=== PATIENT | female | born 1970 | race Asian ===

== ENCOUNTER 2024-08-12 04:15 | Emergency (ER) | payer MEDICAID, OTHER ==
[~2024-08-12] VITALS: Ht 157.5 cm; Wt 68.2 kg
[2024-08-12 05:32] LABS: ANION GAP 9 mmol/L (8-16); CALCIUM, TOTAL 8.9 mg/dL (8.8-10.5); CARBON DIOXIDE 28 mmol/L (22-29); CHLORIDE 95 mmol/L (98-107); CREATININE 0.78 mg/dL (0.60-1.30); GLOMERULAR FILTR. RATE CALC > 60 mL/min (>60); GLUCOSE,RANDOM 386 mg/dL (70-110); SODIUM SERUM 132 mmol/L (136-145); UREA NITROGEN, BLOOD 16 mg/dL (7-18)
[2024-08-12 05:34] LABS: BASOPHILS % (AUTO) 0.1 % (0.0-2.0); EOSINOPHILS % (AUTO) 0.2 % (1.0-6.0); HEMATOCRIT 49.6 % (36-46); HEMOGLOBIN 16.4 g/dL (12.0-16.0); LYMPHOCYTES # (AUTO) 0.5 K/uL (1.0-4.8); MEAN CORPUSCULAR HEMOGLOBIN 30.2 pg (26.0-34.0); MEAN CORPUSCULAR VOLUME 92 fL (80-100); MONOCYTES # (AUTO) 0.5 K/uL (0.1-1.0); MONOCYTES % (AUTO) 2.8 % (2.0-9.0); NEUTROPHILS # (AUTO) 16.4 K/uL (1.8-7.7); PLATELET COUNT (AUTO) 380 K/uL (150-450); RED BLOOD CELL COUNT(AUTO) 5.41 MIL/uL (4.00-5.20); RED CELL DISTRIBUTION WIDTH 12.7 % (11.5-14.5); WHITE BLOOD COUNT (AUTO) 17.4 K/uL (4.5-11.0)
[2024-08-12 05:35] LABS: NEUTROPHILS % (AUTO) 93.9 % (40.0-70.0)
[2024-08-12 05:38] LABS: BILIRUBIN,DIRECT 0.1 mg/dL (0.00-0.20); BILIRUBIN,TOTAL 0.4 mg/dL (0.1-1.0); TOTAL PROTEIN, SERUM 8.8 g/dL (6.4-8.2)
[2024-08-12 05:42] LABS: LIPASE 43 U/L (16-77); TROPONIN I-HIGH SENSITIVITY 15 ng/L (<51)
[2024-08-12] MEDS: ONDANSETRON 4 MG TABLET PO ONE (06:03)
[2024-08-12] MEDS: SODIUM CHLORIDE 0.9% 1,000 ML IV ONE ×2 (06:38→08:21)
[2024-08-12] MEDS: ONDANSETRON HCL 4 MG/2 ML VIAL IVP ONE (06:41)
[2024-08-12] MEDS: PB/HYOSCY/ATR/SCOP/LIDO/MAALOX 55 ML BOTTLE PO ONE (06:41)
[2024-08-12] MEDS: MORPHINE SULFATE 4 MG/ML SYRINGE IVP ONE (06:42)
[2024-08-12 07:56] LABS: APPEARANCE,URINE CLEAR (CLEAR); BILIRUBIN,URINE NEGATIVE (NEGATIVE); COLOR,URINE LIGHT YELLOW (YELLOW); GLUCOSE, URINE (UA) >=1000 mg/dL (NEGATIVE); KETONES,URINE =>150 mg/dL (NEGATIVE); LEUKOCYTE ESTERASE ,URINE TRACE (NEGATIVE); NITRATE,URINE NEGATIVE (NEGATIVE); OCCULT BLOOD,URINE TRACE (NEGATIVE); PROTEIN,URINE TRACE mg/dL (NEGATIVE); SPECIFIC GRAVITIY, URINE 1.032 (1.003-1.030); UROBILINOGEN,URINE <=1.0 mg/dL (<=1.0)
[2024-08-12 08:01] LABS: GLUCOMETER DEV NAME(LOC) ER.7; GLUCOSE,POINT OF CARE 343 MG/DL (70-110)
[2024-08-12 08:24] LABS: BACTERIA,URINE None Seen /HPF (None Seen); RBC,URINE 0-2 /HPF (0-2); WBC,URINE 0-2 /HPF (0-5)
[2024-08-12] MEDS: INSULIN REGULAR, HUMAN 100 UNITS/ML IVP ONE (08:24)
[2024-08-12 09:56] LABS: GLUCOMETER DEV NAME(LOC) ER.7; GLUCOSE,POINT OF CARE 253 MG/DL (70-110)
[2024-08-12 10:31] VITALS: TEMP 98.2
[2024-08-12] MEDS ORDERED: ONDA-104 PO (10:32)
[2024-08-12] MEDS ORDERED: METF-1211 PO (10:32)
[2024-08-12 11:13] VITALS: BP 141/66; PULSE 77; RESP 18; O2SAT 99
== END 2024-08-12 11:15 | disposition home or self-care (01) ==
LOC: EMS 04:15
DX: R10.13 Epigastric pain (principal); R19.7 Diarrhea, unspecified; E11.9 Type 2 diabetes mellitus without complications
CPT/HCPCS: 99285; 96374; 76700; 96361; 96375; 80048; 80076; 81001; 82962 ×2; 83690; 84484; 85025; 36415; 93005; J1815; J2270; J2405; Q0162; J7030

== ENCOUNTER 2025-04-20 13:01 | Emergency (ER) | payer OTHER, MEDICAID ==
[~2025-04-20] VITALS: Ht 160 cm; Wt 65.9 kg
[~2025-04-20 13:01] MED LIST: METF-1211 PO; ONDA-104 PO
[2025-04-20 13:11] VITALS: TEMP 97.9
[2025-04-20 13:40] LABS: GLUCOMETER DEV NAME(LOC) ER.7; GLUCOSE,POINT OF CARE 188 MG/DL (70-110)
[2025-04-20] MEDS ORDERED: AMOX-457 PO (14:13)
[2025-04-20] MEDS: PERTUSS(ACELL),DIPH,TET/PF 0.5 ML SYRINGE [ADULT] IM. ONE (14:16)
[2025-04-20 14:32] VITALS: BP 135/72; PULSE 67; RESP 18; O2SAT 99
== END 2025-04-20 15:27 | disposition home or self-care (01) ==
LOC: EMS 13:01
DX: S81.851A Open bite, right lower leg, initial encounter (principal); E11.9 Type 2 diabetes mellitus without complications; Z79.899 Other long term (current) drug therapy; W54.0XXA Bitten by dog, initial encounter; Y93.89 Activity, other specified; Y92.89 Other specified places as the place of occurrence of the external cause; Y99.8 Other external cause status
CPT/HCPCS: 82962; 90471; 90715; 99283